=== PATIENT | female | born 1990 | race Caucasian/White ===

== ENCOUNTER 2020-02-19 16:41 | Outpatient (CLI) | payer OTHER | END 2020-02-20 15:50 | disposition home or self-care (01) | LOC: OBS/DEL 16:41 | PROVIDERS: ATTEND Obstetrics & Gynecology | DX: O98.513 Other viral diseases complicating pregnancy, third trimester (principal); U07.1 COVID-19 ==

== ENCOUNTER 2020-04-04 11:57 | Outpatient (CLI) | payer OTHER | END 2020-04-04 13:10 | disposition home or self-care (01) | LOC: NST 11:57 | PROVIDERS: ATTEND Obstetrics & Gynecology | DX: Z34.83 Encounter for supervision of other normal pregnancy, third trimester (principal) ==

== ENCOUNTER 2020-04-11 05:24 | Inpatient (IN) | payer OTHER ==
[~2020-04-11] VITALS: Ht 154.9 cm; Wt 79.4 kg
[2020-04-11] MEDS ORDERED: PRENATAL TABLE1 EAC1 PO (05:59)
== END 2020-04-13 12:57 | disposition home or self-care (01) | DRG 807 ==
LOC: LDR 05:24 → SURG-SUITE 19:09
PROVIDERS: ADMIT Obstetrics & Gynecology; ATTEND Obstetrics & Gynecology
PROC: 10E0XZZ Delivery of Products of Conception, External Approach (ICD-10-PCS; principal; 2020-04-11)
PROC: 0HQ9XZZ Repair Perineum Skin, External Approach (ICD-10-PCS; 2020-04-11)
PROC: 3E0P7VZ Introduction of Hormone into Female Reproductive, Via Natural or Artificial Opening (ICD-10-PCS; 2020-04-11)
PROC: 3E033VJ Introduction of Other Hormone into Peripheral Vein, Percutaneous Approach (ICD-10-PCS; 2020-04-11)
PROC: 4A1HXFZ Monitoring of Products of Conception, Cardiac Rhythm, External Approach (ICD-10-PCS; 2020-04-11)
PROC: 10907ZC Drainage of Amniotic Fluid, Therapeutic from Products of Conception, Via Natural or Artificial Opening (ICD-10-PCS; 2020-04-11)
DX: O70.0 First degree perineal laceration during delivery (principal); Z37.0 Single live birth; O99.02 Anemia complicating childbirth; D64.9 Anemia, unspecified; Z3A.40 40 weeks gestation of pregnancy; Z20.828 Contact with and (suspected) exposure to other viral communicable diseases